=== PATIENT | male | born 1980 | race Caucasian/White ===

== ENCOUNTER 2016-06-07 21:32 | Emergency (ER) | payer MEDICARE | END 2016-06-08 01:40 | disposition left against medical advice (07) | LOC: ER 21:32 | DX: Z53.21 Procedure and treatment not carried out due to patient leaving prior to being seen by health care provider (principal) | CPT/HCPCS: 99211 ==

== ENCOUNTER 2016-06-13 15:10 | Emergency (ER) | payer MEDICARE | END 2016-06-13 18:09 | disposition other institution (70) | LOC: ER 15:10 | DX: R11.10 Vomiting, unspecified (principal); Z86.19 Personal history of other infectious and parasitic diseases; Z86.14 Personal history of Methicillin resistant Staphylococcus aureus infection; F17.210 Nicotine dependence, cigarettes, uncomplicated; Z79.899 Other long term (current) drug therapy | CPT/HCPCS: 99283 ==